=== PATIENT | male | born 1960 | race Caucasian/White ===

== ENCOUNTER → 2016-09-18 | Outpatient (CLI) | payer OTHER ==
--- NOTE | 2016-09-19 09:09 | MRI ---
Study: MRI of the Lumbar Spine. Indication: LOW BACK PAIN Technique: Multiplanar, multi sequence MRI of the lumbar spine was obtained without intravenous contrast. Comparison: None. Findings: The designated L5-S1 disc space level is visualized on axial T2 image three. Vertebral body height maintained. No marrow infiltrating lesion. Conus medullaris normal in caliber and signal terminating at L1. Lumbar pedicles congenitally short throughout. Level by level analysis as follows: L1-L2: Mild bilateral facet arthrosis, otherwise unremarkable. L2-L3: Mild bilateral facet arthrosis, otherwise unremarkable. L3-L4: Moderate bilateral facet arthrosis, otherwise unremarkable. L4-L5: Severe disc space height loss and disc desiccation with patchy Modic type II endplate changes. 4 mm disc osteophyte complex and moderate bilateral facet arthrosis. Mild spinal canal narrowing and moderate bilateral lateral recess narrowing. Mild to moderate right and minimal left neural foraminal narrowing. L5-S1: Moderate to severe posterior disc space height loss and disc desiccation with patchy Modic type I endplate changes along the right lateral margin of the disc where there is minimal fluid within the disc space levels well. There is a 5.5 mm right eccentric disc osteophyte complex with moderate to severe right and moderate left neural foraminal narrowing. Moderate bilateral facet atherosclerosis. No spinal canal narrowing. Impression: L5-S1 moderate to severe right and moderate left neural foraminal narrowing. Presumed Modic type I endplate changes of the right lateral margin of the disc noted with minimal fluid in the disc space. These changes are likely degenerative in etiology, however correlation with ESR and CRP recommended as discitis-osteomyelitis not excluded. L4-L5 mild spinal canal narrowing with mild to moderate right and minimal left neural foraminal narrowing. Congenitally short lumbar pedicles. Additional findings as above. Electronically signed by: Wong Carlin MD 09/19/2016 9:08 AM TYPING ELEMENT MACHINE OPERATOR
== END | disposition home or self-care (01) ==
LOC: MRI 13:50
PROVIDERS: ATTEND Family Medicine
DX: M48.07 Spinal stenosis, lumbosacral region (principal)

== ENCOUNTER 2017-01-24 08:26 | Emergency (ER) | payer OTHER ==
[2017-01-24 08:40] VITALS: TEMP 97.8
[2017-01-24] MEDS ORDERED: IPRATROPIUM/ALBUTEROL 3 ML VIAL NEB ONE (08:42)
[2017-01-24] MEDS: IPRATROPIUM/ALBUTEROL 3 ML VIAL NEB ONE ×3 (08:45→10:33)
--- NOTE | 2017-01-24 08:55 | ED.PDOC ---
History of Present Illness - General Chief Complaint: Respiratory Problem Stated Complaint: Trouble breathing Time Seen by Provider: 01/24/17 08:44 Source: patient Exam Limitations: no limitations - History of Present Illness Initial Comments: 56 YO MALE WITH HISTORY OF COPD/ASTHMA PRESENTS WITH A FEW DAY HISTORY OF PROGRESSIVELY WORSENING SOB/COUGH. PT DENIES FEVER, CHILLS, OR CHEST PAIN. Timing/Duration: days Severity: moderate Possible Cause: chronic episodes Improving Factors: immobilization, rest Worsening Factors: movement Associated Symptoms: cough, wheezing Respiratory Risk Factors: no cause identified Allergies/Adverse Reactions: Allergies NO KNOWN ALLERGY Allergy (Verified 01/24/17 08:34) Home Medications: Ambulatory Orders HYDROcodone 10MG/APAP 325MG [[place] 10/325] 1 ea PO QID 05/10/14 Albuterol Inhaler [Ventolin Hfa Inhaler] 2 puff INH Q4-6H PRN #1 inh 06/07/14 Budesonide-Formoterol Fumarate [Symbicort 160-4.5 Mcg/Act] 2 aer IN BID Trazodone HCl 50 - 100 mg PO BEDTIME PRN 12/02/14 Albuterol Sulfate Nebs [Proventil Nebs] 2.5 mg INH QID PRN #30 vial 01/20/16 Azithromycin [Zithromax Z-Carlyle] 1 ea PO DAILY #1 pack 01/24/17 Montelukast [Singulair] 10 mg PO DAILY #30 tab 01/24/17 Prednisone 50 mg PO DAILY #5 tab 01/24/17 Review of Systems - Review of Systems Constitutional: Denies: chills, fever EENTM: Denies: nose congestion, throat pain Respiratory: States: see HPI, cough, short of breath, wheezing Cardiology: Denies: chest pain, palpitations Gastrointestinal/Abdominal: Denies: nausea, vomiting Genitourinary: Denies: dysuria, hematuria Musculoskeletal: Denies: joint pain, joint swelling Skin: Denies: change in color, dryness Neurological: Denies: headache, paresthesia Endocrine: Denies: intolerance to cold, intolerance to heat Hematologic/Lymphatic: Denies: easy bleeding, easy bruising Past Medical History (General) - Patient Medical History Hx Seizures: No Hx Stroke: No Hx Dementia: No Hx Asthma: Yes Hx of COPD: Yes Hx Cardiac Disorders: No Hx Congestive Heart Failure: No Hx Pacemaker: No Hx Hypertension: No Hx Thyroid Disease: No Hx Diabetes: No Hx Gastroesophageal Reflux: No Hx Renal Disease: No Hx Cancer: No Hx of HIV: No Hx Hepatitis C: No Hx MRSA: No - Vaccination History Hx Tetanus, Diphtheria Vaccination: Yes Hx Influenza Vaccination: Yes - 2016 Hx Pneumococcal Vaccination: No - Social History Hx Tobacco Use: Yes - Quit 2016 Hx Chewing Tobacco Use: No Hx Alcohol Use: No Hx Substance Use: No Hx Substance Use Treatment: No Hx Depression: No Hx Physical Abuse: No Hx Emotional Abuse: No Hx Suspected Abuse: No - Female History Patient : No Family Medical History - Family History Mother Family History: No Known Age (years): 64 Living Status: Cause of : aspiration pneumonia, sepsis from fx ankle surgery Physical Exam - Physical Exam General Appearance: Alert, Obvious distress - MILD RESPIRATORY Eyes, Ears, Nose, Throat Exam: normal ENT inspection Neck: full range of motion, supple Respiratory: chest non-tender, accessory muscle use, wheezing Cardiovascular/Chest: regular rate, rhythm, no murmur Gastrointestinal/Abdominal: non tender, soft Extremity: normal range of motion, normal inspection Neurologic: alert, normal mood/affect, oriented x 3 Skin Exam: normal color, warm/dry Progress - Progress Progress: 01/24/17 10:20 PT HAS SIGNIFICANT IMPROVEMENT IN DYSPNEA AND WHEEZING AFTER 2 DUONEBS. A FAINT WHEEZE STILL REMAINS. ADDITIONAL DUONEB ORDERED. CXR FINDINGS DISCUSSED WITH PATIENT, INCLUDING PULMONARY NODULE AND IMPORTANCE OF FOLLOWING UP WITH PCP REGARDING IT. - EKG/XRAY/CT XRAY: chest - RUL PULMONARY NODULE, NO OTHER ACUTE FINDINGS Departure - Departure Clinical Impression: COPD exacerbation, Acute bronchitis, Pulmonary nodule, right Time of Disposition: 10:46 Disposition: Discharge to Home or Self Care Condition: Good Departure Forms: ED Discharge - Pt. Copy, Patient Portal Self Enrollment Instructions: DI for Chronic Obstructive Pulmonary Disease, DI for Acute Bronchitis, DI for Pulmonary Nodule Diet: resume usual diet Activity: increase activity as tolerated Referrals: Zane Kamara MD [Primary Care Provider] - 1-2 Weeks Prescriptions: Azithromycin [Zithromax Z-Carlyle] 1 ea PO DAILY #1 pack Montelukast [Singulair] 10 mg PO DAILY #30 tab Prednisone 50 mg PO DAILY #5 tab Home Medications: Ambulatory Orders HYDROcodone 10MG/APAP 325MG [[place] 10/325] 1 ea PO QID 05/10/14 Albuterol Inhaler [Ventolin Hfa Inhaler] 2 puff INH Q4-6H PRN #1 inh 06/07/14 Budesonide-Formoterol Fumarate [Symbicort 160-4.5 Mcg/Act] 2 aer IN BID Trazodone HCl 50 - 100 mg PO BEDTIME PRN 12/02/14 Albuterol Sulfate Nebs [Proventil Nebs] 2.5 mg INH QID PRN #30 vial 01/20/16 Azithromycin [Zithromax Z-Carlyle] 1 ea PO DAILY #1 pack 01/24/17 Montelukast [Singulair] 10 mg PO DAILY #30 tab 01/24/17 Prednisone 50 mg PO DAILY #5 tab 01/24/17
[2017-01-24] MEDS: methylPREDNISolone SODIUM SUC 125 MG/2 ML VIAL IM ONE (08:58)
--- NOTE | 2017-01-24 09:08 | RAD ---
Chest two views INDICATION: Shortness of breath cough COMPARISON: January 19, 2016 IMPRESSION: Normal heart size. Mild hyperexpansion of the lungs and prominent interstitial markings. No focal mass or confluent infiltrate. Possible small nodular density in the right upper lung. This may be scarring. Consider follow-up nonemergent baseline CT chest to exclude small nodule. This is nonemergent. No pleural effusion or pneumothorax. No acute osseous abnormality. Previous surgery right shoulder Electronically signed by: Anurag Batista MD 01/24/2017 9:06 AM CDT
[2017-01-24 11:17] VITALS: BP 136/85; O2SAT 95
== END 2017-01-24 11:08 | disposition home or self-care (01) ==
LOC: ER 08:26
DX: J44.1 Chronic obstructive pulmonary disease with (acute) exacerbation (principal); J20.9 Acute bronchitis, unspecified; J44.0 Chronic obstructive pulmonary disease with (acute) lower respiratory infection; R91.1 Solitary pulmonary nodule; Z87.891 Personal history of nicotine dependence; Z79.899 Other long term (current) drug therapy

== ENCOUNTER → 2017-03-14 | Outpatient (CLI) | payer OTHER ==
--- NOTE | 2017-03-16 07:41 | RAD ---
Procedure: XR SHOULDER 2 OR MORE VIEWS Exam Date: 03/14/2017 12:00 AM CDT Ordering Provider: OFE BATRES MD Clinical Indication: SHOULDER PAIN Comparison: None FINDINGS: There is no fracture or dislocation. The subacromial space is preserved. Mild acromioclavicular joint osteoarthritis. The glenohumeral joint has a normal appearance. No lytic or sclerotic lesions. IMPRESSION: 1. Nonacute exam of the left shoulder. 2. Mild a.c. joint osteoarthritis. Electronically signed by: Gama Hooks MD 03/16/2017 7:39 AM CDT
--- NOTE | 2017-03-16 11:34 | RAD ---
EXAM DESCRIPTION: Fingers,Left CLINICAL HISTORY: 57 years, Male, SWELLING COMPARISON: FINDINGS: Three views of the left 2nd digit do not demonstrate fracture or dislocation. Some minimal degenerative change of the DIP joint. IMPRESSION: No fracture or dislocation Electronically signed by: Evelio Leon MD 03/16/2017 11:32 AM CDT
== END | disposition home or self-care (01) ==
LOC: RAD 07:31
PROVIDERS: ATTEND Orthopaedic Surgery
DX: M25.512 Pain in left shoulder (principal); M79.645 Pain in left finger(s)

== ENCOUNTER 2017-05-12 18:30 | Emergency (ER) | payer OTHER ==
--- NOTE | 2017-05-12 19:09 | ED.PDOC ---
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 Timing/Duration: getting worse, other - 5 days Severity: moderate Activities at Onset: none Possible Cause: occasional episodes, allergen exposure Improving Factors: nothing Associated Symptoms: other - see hpi Respiratory Risk Factors: exposure to allergen Allergies/Adverse Reactions: Allergies NO KNOWN ALLERGY Allergy (Verified 05/12/17 19:19) Home Medications: Ambulatory Orders HYDROcodone 10MG/APAP 325MG [[place] ] 1 ea PO QID 05/10/14 Albuterol Inhaler [Ventolin Hfa Inhaler] 2 puff INH Q4-6H PRN #1 inh 06/07/14 Budesonide-Formoterol Fumarate [Symbicort 160-4.5 Mcg/Act] 2 aer IN BID Trazodone HCl 50 - 100 mg PO BEDTIME PRN 12/02/14 Albuterol Sulfate Nebs [Proventil Nebs] 2.5 mg INH QID PRN #30 vial 01/20/16 Montelukast [Singulair] 10 mg PO DAILY #30 tab 01/24/17 Azithromycin [Zithromax Z-Carlyle] 1 ea PO DAILY #1 pack 05/12/17 Lisinopril 10 mg PO 05/12/17 predniSONE 20 mg PO BID #14 tab 05/12/17 Review of Systems - Review of Systems Constitutional: States: no symptoms reported EENTM: States: no symptoms reported Respiratory: States: see HPI Cardiology: States: no symptoms reported Gastrointestinal/Abdominal: States: no symptoms reported Genitourinary: States: no symptoms reported Past Medical History (General) - Patient Medical History Hx Seizures: No Hx Stroke: No Hx Dementia: No Hx Asthma: Yes Hx of COPD: Yes Hx Cardiac Disorders: No Hx Congestive Heart Failure: No Hx Pacemaker: No Hx Hypertension: No Hx Thyroid Disease: No Hx Diabetes: No Hx Gastroesophageal Reflux: No Hx Renal Disease: No Hx Cancer: No Hx of HIV: No Hx Hepatitis C: No Hx MRSA: No Surgical History: other - right shoulder ,foot - Vaccination History Hx Tetanus, Diphtheria Vaccination: Yes Hx Influenza Vaccination: Yes - 2016 Hx Pneumococcal Vaccination: No - Social History Hx Tobacco Use: Yes - Quit 2016 Years Tobacco Use: 30 Hx Chewing Tobacco Use: No Hx Alcohol Use: No Hx Substance Use: No Hx Substance Use Treatment: No Hx Depression: No Hx Physical Abuse: No Hx Emotional Abuse: No Hx Suspected Abuse: No - Activities of Daily Living Patient Lives Alone: No - family - Female History Patient : No Family Medical History - Family History Mother Family History: No Known Age (years): 64 Living Status: Cause of : aspiration pneumonia, sepsis from fx ankle surgery Hx Family Asthma: Yes - sister Physical Exam - Physical Exam General Appearance: Alert, Anxious, No apparent distress Eyes, Ears, Nose, Throat Exam: PERRL/EOMI, normal ENT inspection, pharynx normal Neck: non-tender, full range of motion, supple Respiratory: no respiratory distress, decreased breath sounds, wheezing, other - speaks in full sentences Cardiovascular/Chest: normal peripheral pulses, regular rate, rhythm, no murmur Peripheral Pulses: radial,right: 2+, radial,left: 2+ Gastrointestinal/Abdominal: non tender, soft, no organomegaly Extremity: no pedal edema, no calf tenderness Neurologic: alert, normal mood/affect, oriented x 3 Skin Exam: normal color, warm/dry Lymphatic: no adenopathy Progress - Progress Progress: 05/12/17 20:28 Last Vital Signs Temp 98.2 F 05/12/17 19:15 Pulse 106 H 05/12/17 19:15 Resp 22 05/12/17 19:19 BP 145/97 05/12/17 19:15 Pulse Ox 94 L 05/12/17 19:15 Laboratory Tests 05/12/17 05/12/17 05/12/17 19:23 19:23 19:23 WBC 11.6 H RBC 5.28 Hgb 15.4 Hct 45.9 MCV 86.9 MCH 29.3 MCHC 33.7 RDW 13.3 Plt Count 291 MPV 7.7 Absolute Neuts (auto) 7.80 H Absolute Lymphs (auto) 2.20 Absolute Monos (auto) 0.70 Absolute Eos (auto) 0.70 H Absolute Basos (auto) 0.10 Neutrophils % 67.3 Lymphocytes % 19.2 L Monocytes % 6.4 Eosinophils % 6.2 H Basophils % 0.9 D-Dimer, Quantitative < 200 Sodium 138 Potassium 4.2 Chloride 104 Carbon Dioxide 28 Anion Gap 10.2 L BUN 17 Creatinine 1.12 BUN/Creatinine Ratio 15.2 Random Glucose 113 H Serum Osmolality 278.0 Calcium 9.4 Total Bilirubin 0.4 AST 24 ALT 41 Alkaline Phosphatase 118 Troponin I Serum Total Protein 7.3 Albumin 4.3 Globulin 3.0 Albumin/Globulin Ratio 1.4 05/12/17 19:23 WBC RBC Hgb Hct MCV MCH MCHC RDW Plt Count MPV Absolute Neuts (auto) Absolute Lymphs (auto) Absolute Monos (auto) Absolute Eos (auto) Absolute Basos (auto) Neutrophils % Lymphocytes % Monocytes % Eosinophils % Basophils % D-Dimer, Quantitative Sodium Potassium Chloride Carbon Dioxide Anion Gap BUN Creatinine BUN/Creatinine Ratio Random Glucose Serum Osmolality Calcium Total Bilirubin AST ALT Alkaline Phosphatase Troponin I < 0.02 Serum Total Protein Albumin Globulin Albumin/Globulin Ratio - EKG/XRAY/CT XRAY: chest - no acute abnormalities Departure - Departure Clinical Impression: Asthma with acute exacerbation in adult Qualifiers: Asthma severity: unspecified severity Qualified Code(s): J45.901 - Unspecified asthma with (acute) exacerbation Time of Disposition: 20:30 Disposition: Discharge to Home or Self Care Condition: Fair Departure Forms: ED Discharge - Pt. Copy, Patient Portal Self Enrollment Instructions: Asthma -- Adult, DI for Asthma -- Adult Referrals: Zane Kamara MD [Primary Care Provider] - 1-2 Weeks Prescriptions: Azithromycin [Zithromax Z-Carlyle] 1 ea PO DAILY #1 pack predniSONE 20 mg PO BID #14 tab Home Medications: Ambulatory Orders HYDROcodone 10MG/APAP 325MG [[place] 10/325] 1 ea PO QID 05/10/14 Albuterol Inhaler [Ventolin Hfa Inhaler] 2 puff INH Q4-6H PRN #1 inh 06/07/14 Budesonide-Formoterol Fumarate [Symbicort 160-4.5 Mcg/Act] 2 aer IN BID Trazodone HCl 50 - 100 mg PO BEDTIME PRN 12/02/14 Albuterol Sulfate Nebs [Proventil Nebs] 2.5 mg INH QID PRN #30 vial 01/20/16 Montelukast [Singulair] 10 mg PO DAILY #30 tab 01/24/17 Azithromycin [Zithromax Z-Carlyle] 1 ea PO DAILY #1 pack 05/12/17 Lisinopril 10 mg PO 05/12/17 predniSONE 20 mg PO BID #14 tab 05/12/17 Additional Instructions: Return to emergency room as needed
[2017-05-12 19:23] VITALS: TEMP 98.2
--- NOTE | 2017-05-12 19:42 | RAD ---
Examination: XR CHEST 1 VIEW dated 05/12/2017 7:09 PM CDT History: sob Comparison: 01/24/2017 Technique: Frontal view of the chest Findings: The lungs are clear bilaterally. No pneumothorax or pleural effusion. The cardiomediastinal silhouette is within normal limits. Impression: No acute disease. Electronically signed by: Zane Sal MD 05/12/2017 7:41 PM CDT
[2017-05-12] MEDS: IPRATROPIUM/ALBUTEROL 3 ML VIAL NEB ONE (19:48)
[2017-05-12] MEDS ORDERED: LIDOCAINE 1% 10 ML VIAL INJ ONE (20:10)
[2017-05-12] MEDS: LEVALBUTEROL NEBS 1.25 MG/3 ML VIAL NEB ONE (20:13)
[2017-05-12] MEDS: SODIUM CHLORIDE 0.9% 1000ML 1,000 ML IVS ONE (20:31)
[2017-05-12] MEDS: cefTRIAXone SODIUM 1 GM VIAL IM ONE (20:31)
[2017-05-12] MEDS: methylPREDNISolone SODIUM SUC 125 MG/2 ML VIAL IV ONE (20:31)
[2017-05-12 21:22] VITALS: BP 137/98; O2SAT 96
== END 2017-05-12 21:23 | disposition home or self-care (01) ==
LOC: ER 18:30
DX: J45.901 Unspecified asthma with (acute) exacerbation (principal); Z87.891 Personal history of nicotine dependence; Z79.899 Other long term (current) drug therapy
CPT/HCPCS: 36415; 71010; 80053; 84484; 85025; 85379; 94640; J0696; J2930; J7030; J7614; J7620

== ENCOUNTER 2017-10-13 08:23 | Emergency (ER) | payer BC, SELFPAY ==
[2017-10-13 08:39] VITALS: TEMP 98.5
--- NOTE | 2017-10-13 08:50 | ED.PDOC ---
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 Pt has Right sided LMN Type of facial Nerve paralysis - History of Present Illness Severity: moderate Improving Factors: nothing Worsening Factors: nothing Associated Symptoms: denies symptoms Allergies/Adverse Reactions: Allergies NO KNOWN ALLERGY Allergy (Verified 10/13/17 08:39) Home Medications: Ambulatory Orders HYDROcodone 10MG/APAP 325MG [[place] 10/325] 1 ea PO QID 05/10/14 Albuterol Inhaler [Ventolin Hfa Inhaler] 2 puff INH Q4-6H PRN #1 inh 06/07/14 Budesonide-Formoterol Fumarate [Symbicort 160-4.5 Mcg/Act] 2 aer IN BID Trazodone HCl 50 - 100 mg PO BEDTIME PRN 12/02/14 Albuterol Sulfate Nebs [Proventil Nebs] 2.5 mg INH QID PRN #30 vial 01/20/16 Montelukast [Singulair] 10 mg PO DAILY #30 tab 01/24/17 Azithromycin [Zithromax Z-Carlyle] 1 ea PO DAILY #1 pack 05/12/17 Lisinopril 10 mg PO 05/12/17 predniSONE 20 mg PO BID #14 tab 05/12/17 Acyclovir [Zovirax] 800 mg PO Q6HR #1 tab 10/13/17 Erythromycin Ophth Oint 1 gm OPHTH BEDTIME 15 Days #3.5 tube NS 10/13/17 Methylprednisolone [Medrol Dose Carlyle] 4 mg PO Q24HR #1 tab 10/13/17 Review of Systems - Review of Systems Constitutional: States: no symptoms reported EENTM: States: no symptoms reported Respiratory: States: no symptoms reported Cardiology: States: no symptoms reported Gastrointestinal/Abdominal: States: no symptoms reported Genitourinary: States: no symptoms reported Musculoskeletal: States: no symptoms reported Skin: States: no symptoms reported Neurological: States: see HPI Hematologic/Lymphatic: States: no symptoms reported Past Medical History (General) - Patient Medical History Hx Seizures: No Hx Stroke: No Hx Dementia: No Hx Asthma: Yes Hx of COPD: Yes Hx Cardiac Disorders: No Hx Congestive Heart Failure: No Hx Pacemaker: No Hx Hypertension: Yes Hx Thyroid Disease: No Hx Diabetes: No Hx Gastroesophageal Reflux: No Hx Renal Disease: No Hx Cancer: No Hx of HIV: No Hx Hepatitis C: No Hx MRSA: No Surgical History: other - Vaccination History Hx Tetanus, Diphtheria Vaccination: Yes Hx Influenza Vaccination: No Hx Pneumococcal Vaccination: No - Social History Hx Tobacco Use: Yes - Quit 2016 Hx Chewing Tobacco Use: No Hx Alcohol Use: No Hx Substance Use: No Hx Substance Use Treatment: No Hx Depression: No Hx Physical Abuse: No Hx Emotional Abuse: No Hx Suspected Abuse: No - Female History Patient is a Female of Child Bearing Age (10 -59 yrs old): No Patient : No Family Medical History - Family History Mother Family History: No Known Age (years): 64 Living Status: Cause of : aspiration pneumonia, sepsis from fx ankle surgery Hx Family Asthma: Yes - sister Physical Exam - Physical Exam General Appearance: Alert Eye Exam: bilateral normal ENT Exam: normal ENT inspection, hearing grossly normal, TMs normal Neck: non-tender, full range of motion, supple, normal inspection Respiratory: chest non-tender, lungs clear, normal breath sounds, no respiratory distress, no accessory muscle use Cardiovascular/Chest: normal peripheral pulses, regular rate, rhythm, no edema, no gallop, no JVD Peripheral Pulses: radial,right: 2+, radial,left: 2+, femoral,right: 2+, femoral ,left: 2+, popliteal,right: 2+, popliteal,left: 2+, dorsalis pedis,right: 2+ Gastrointestinal/Abdominal: normal bowel sounds, non tender, soft Back Exam: normal inspection, no CVA tenderness, no vertebral tenderness Extremities Exam: non-tender, normal range of motion, no evidence of injury Mental 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, 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 Copy, Patient Portal Self Enrollment Diet: resume usual diet Referrals: Zane Kamara MD [Primary Care Provider] - 1-2 Weeks Prescriptions: Acyclovir [Zovirax] 800 mg PO Q6HR #1 tab Methylprednisolone [Medrol Dose C[place]] 4 mg PO Q24HR #1 tab Erythromycin Ophth Oint 1 gm OPHTH BEDTIME 15 Days #3.5 tube NS Home Medications: Ambulatory Orders HYDROcodone 10MG/APAP 325MG [[place] ] 1 ea PO QID 05/10/14 Albuterol Inhaler [Ventolin Hfa Inhaler] 2 puff INH Q4-6H PRN #1 inh 06/07/14 Budesonide-Formoterol Fumarate [Symbicort 160-4.5 Mcg/Act] 2 aer IN BID Trazodone HCl 50 - 100 mg PO BEDTIME PRN 12/02/14 Albuterol Sulfate Nebs [Proventil Nebs] 2.5 mg INH QID PRN #30 vial 01/20/16 Montelukast [Singulair] 10 mg PO DAILY #30 tab 01/24/17 Azithromycin [Zithromax Z-Carlyle] 1 ea PO DAILY #1 pack 05/12/17 Lisinopril 10 mg PO 05/12/17 predniSONE 20 mg PO BID #14 tab 05/12/17 Acyclovir [Zovirax] 800 mg PO Q6HR #1 tab 10/13/17 Erythromycin Ophth Oint 1 gm OPHTH BEDTIME 15 Days #3.5 tube NS 10/13/17 Methylprednisolone [Medrol Dose C[place]le] 4 mg PO Q24HR #1 tab 10/13/17 Comments: ADVISED TO FOLLOW UP PCP AND NEUROLOGIST
[2017-10-13] MEDS ORDERED: DEXAMETHASONE INJ 10 MG/ML VIAL IM ONE (08:53)
[2017-10-13 09:22] VITALS: BP 130/79; O2SAT 95
== END 2017-10-13 09:22 | disposition home or self-care (01) ==
LOC: ER 08:23
DX: G51.0 Bell's palsy (principal); J44.9 Chronic obstructive pulmonary disease, unspecified; I10 Essential (primary) hypertension; Z87.891 Personal history of nicotine dependence; Z79.899 Other long term (current) drug therapy

== ENCOUNTER → 2018-09-03 | Outpatient (CLI) | payer BC | LOC: GMAJ 17:14 | PROVIDERS: ATTEND Family Medicine | DX: E29.1 Testicular hypofunction (principal) ==

== ENCOUNTER → 2018-09-16 | Outpatient (CLI) | payer BC ==
--- NOTE | 2018-09-16 17:11 | US ---
EXAM DESCRIPTION: Abdomen,Complete CLINICAL HISTORY: R94.5 COMPARISON: None Available. TECHNIQUE: Complete abdominal ultrasound FINDINGS: Visualized portions of the pancreas are unremarkable. No peripancreatic fluid. Bowel gas obscures some areas. Normal caliber of the aorta. Normal appearance of the inferior vena cava. Cyst in the liver in the left lobe measures 1.7 cm. Liver parenchyma is otherwise homogeneous in texture with increased echogenicity of hepatic steatosis. No liver mass or intrahepatic bile duct dilatation. No liver surface irregularity. Liver is enlarged measuring 18.3 cm in length. Normal appearance of hepatic veins and portal vein. Gallbladder appears normal with no intraluminal stones. No gallbladder wall thickening. Common bile duct is normal in caliber measuring 4.0 mm. The right kidney measures 10.5 cm in length. Normal renal cortical echogenicity. The renal cortical thickness appears normal. No right renal mass, shadowing stone or cyst. There is no hydronephrosis. Spleen is normal in size. No focal splenic lesion. The left kidney measures 10.8 cm in length. Normal renal cortical echogenicity. The renal cortical thickness appears normal. No left renal mass, shadowing stone or cyst. There is no hydronephrosis. IMPRESSION: Small left lobe liver cyst. Diffuse hepatic steatosis. Electronically signed by: David Gregorio MD 09/16/2018 5:08 PM RELAY TESTER
== END ==
LOC: US 15:00
PROVIDERS: ATTEND Family Medicine
DX: R94.5 Abnormal results of liver function studies (principal); K76.0 Fatty (change of) liver, not elsewhere classified; K76.89 Other specified diseases of liver

== ENCOUNTER → 2019-12-14 | Outpatient (CLI) | payer BC | LOC: GMAJ 15:29 | PROVIDERS: ATTEND Family Medicine | DX: E29.1 Testicular hypofunction (principal) ==